=== PATIENT | male | born 1990 | race Caucasian/White ===

== ENCOUNTER → 2022-05-21 11:03 | Outpatient (ROUT) | payer OTHER, SELFPAY ==
[2022-05-21 13:12] LABS: Urine N gonorrhoeae NOT DETECTED
[2022-05-21 13:32] LABS: Urine Chlamydia NOT DETECTED
== END ==
PROVIDERS: Visit Provider Physician Assistant Medical
DX: Z11.3 Encounter for screening for infections with a predominantly sexual mode of transmission (principal)
CPT/HCPCS: 87491; 87591